=== PATIENT | female | born 1945 | race Caucasian/White ===

== ENCOUNTER 2020-09-02 07:56 | Emergency (ER) | payer MEDICARE, BC ==
[~2020-09-02] VITALS: Ht 167.6 cm; Wt 63.5 kg
--- NOTE | 2020-09-02 08:26 | Emergency Room Report ---
History of Present Illness General Chief Complaint: Flu Like Symptoms Source: Patient Present Illness HPI Patient presents with cough and headache. She is also had muscle aches. She tested yesterday positive for Covid 19. She has a history of diabetes. She has never used an inhaler. She does hear herself wheezing. The cough is nonproductive. She rates the generalized aches as 4/10. No fevers, chills, sore throat, chest pain, palpitations, nausea, vomiting, diarrhea, dysuria, abdominal pain, shortness of breath, rashes, depression, anxiety, visual changes, dizziness. The patient takes Metformin. She denies polyuria or polydipsia. 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 COVID-19 Screening: Positive COVID-19 COVID-19 Testing [facility] Patient History Past Medical History: see triage record, DM Social History: Denies: smoking, alcohol use, drug use Social History Narrative Lives by herself Last Menstrual Period: n/a Reviewed Nursing Documentation: PMH: Agreed; PSxH: Agreed Nursing Documentation-PMH Past Medical History: No History, Except For Hx Diabetes: Yes Review of Systems All Other Systems: negative except mentioned in HPI Physical Exam Vital Signs Date Time Temp Pulse Resp B/P (MAP) Pulse Ox O2 Delivery O2 Flow Rate FiO2 09/02/20 08:18 99.9 90 20 123/87 (99) 100 Room Air Sp02 EP Interpretation: reviewed, normal General Appearance: well appearing, no apparent distress, GCS 15, non-toxic Head: normocephalic Eyes: bilateral eye normal inspection, bilateral eye PERRL, bilateral eye EOMI ENT: moist mucus membranes Neck: supple Respiratory: no respiratory distress, wheezing, expiration Cardiovascular #1: regular rate, rhythm Cardiovascular #2: 2+ radial (R) Gastrointestinal: normal inspection, normal bowel sounds, non tender, no mass, non-distended Genitourinary: no CVA tenderness Musculoskeletal: back normal, normal range of motion, no calf tenderness, gait/station normal Neurologic: alert, oriented x3, grossly normal Psychiatric: anxious Skin: no rash, warm/dry Medical Decision Making Diagnostic Impression: Primary Impression: COVID-19 Additional Impressions: Diabetes Qualified Codes: E11.9 - Type 2 diabetes mellitus without complications Bronchospasm ER Course Patient tested Covid positive with history of diabetes and good pulse oximetry excellent candidate for bam. EKG also will be obtained. Patient treated with DuoNeb. In addition Accu-Chek will be obtained. Accucheck 142. Improved after HHN. BAM infusing without problem. 946 Patient tolerated BAM. Instructed patient on use of inhaler with spacer. Patient improved and stable for outpatient observation and treatment. EKG Diagnostic Results Rate: normal Rhythm: NSR ST Segments: no acute changes Rhythm Strip Diag. Results EP Interpretation: yes Rhythm: NSR, no PVC's, no ectopy Last Vital Signs Date Time Temp Pulse Resp B/P (MAP) Pulse Ox O2 Delivery O2 Flow Rate FiO2 09/02/20 11:19 98.0 85 19 124/78 97 Room Air 09/02/20 09:09 21 Status: improved Disposition: HOME, SELF-CARE Condition: Improved Scripts Inhaler, Assist Devices (Breatherite Spacer-Adult Mask) 1 Each Spacer EACH , #1 Prov: Ken Dong MD 09/02/20 Guaifenesin/Codeine Phos* (ROBITUSSIN AC*) 118 Ml Liquid 5 ML ORAL Q6H PRN for For Cough, #60 ML 0 Refills Prov: Ken oDng MD 09/02/20 Acetaminophen (Tylenol) 325 Mg Tablet 650 MG ORAL Q6H PRN for Prn Pain/Headache/Temp > 101, #20 TAB 0 Refills Prov: Ken Dong MD 09/02/20 Albuterol Sulfate* (Albuterol Sulfate Hfa*) 8.5 Gm Hfa.aer.ad 1-2 PUFF INH Q6H, #1 INH Prov: Ken Dong MD 09/02/20 Ken Dong MD Sep 02, 2020 08:26
[2020-09-02 08:30] VITALS: BP 123/87
[2020-09-02] MEDS ORDERED: Acetaminophen 500mg (ES) tab ORAL ONE (08:30)
[2020-09-02] MEDS ORDERED: Bamlanivimab Fact Sheet MISC ONE (08:30)
[2020-09-02] MEDS ORDERED: Bamlanivimab 700 MG in NS 275 ML IVPB SCH (08:30)
[2020-09-02] MEDS ORDERED: Albuterol/Ipratropium 3ml neb HHN ONE (08:30)
--- NOTE | 2020-09-02 08:30 | NUR ---
ED Nurse Note: Patient walked into ED c/o flu like symptoms such as fever, cough and sore throat, patient reports of being tested for covid yesterdat 09/01/20 and found out she was positive, o2 sat at ED currently at 100% on room air. patient does present with a slightly elevated temp of 99.9 oral, denies any SOB however patient is actively coughing. patient placed in an isolation room, placed on quality assurance monitor chassis, will continue to monitor
[2020-09-02] MEDS ORDERED: ALBUTEROL SULF8.5 G1 INH (09:51)
[2020-09-02] MEDS ORDERED: GUAIFENESIN-CO118 M1 ORAL (09:51)
[2020-09-02] MEDS ORDERED: TYLENOL325 MG ORAL (09:51)
--- NOTE | 2020-09-02 09:51 | NUR ---
CONTACT INFO MOISE CORTÉS, PATIENT'S SON [phone]
[2020-09-02] MEDS ORDERED: BREATHERITE SP1 EAC4 MC (09:54)
[2020-09-02 10:07] VITALS: BP 133/99
[2020-09-02 11:19] VITALS: BP 124/78
--- NOTE | 2020-09-02 11:19 | NUR ---
ER DISCHARGE NOTE: Patient is cleared to be discharged per ERMD, pt is aox4, on room air, with stable vital signs. pt was given dc and prescription instructions, pt was able to verbalize understanding, pt id band and iv site removed without complications. pt is able to ambulate with steady gait. pt took all belongings. Antonio, the son was given patient education regarding the patient's discharge instructions
== END 2020-09-02 11:19 | disposition home or self-care (01) ==
LOC: EMR 08:30
DX: U07.1 COVID-19 (principal); E11.9 Type 2 diabetes mellitus without complications; J98.01 Acute bronchospasm; R51.9 Headache, unspecified; M79.10 Myalgia, unspecified site
CPT/HCPCS: 93005; 94640; 96365; 99284; J7050; Q0239; J7620